=== PATIENT | female | born 1985 | race African-American/Black ===

== ENCOUNTER 2016-09-30 10:29 | Outpatient (CLI) | payer BC ==
[2016-09-30 17:52] LABS: Anion Gap 13 mmol/L (10-20); Globulin 2.7 g/dL (2.4-3.5); Iron Binding Capacity, Total 320 mcg/dL (265-497)
[2016-09-30 19:44] LABS: #Eosinphils 0.1 thou/uL (0.0-0.7); #Monocytes 0.4 thou/uL (0.11-0.59); #Neutrophils 3.7 thou/uL (1.40-6.50); %Basophils 0.7 % (0.0-1.0); %Eosinophils 1.3 % (0.0-10.0); %Lymphocytes 32.5 % (21.0-51.0); %Monocytes 6.9 % (0.0-10.0); %Neutrophils 58.7 % (42.0-75.0); ALT (SGPT) 16 U/L (8-55); AST (SGOT) 14 U/L (5-34); Albumin 4.3 g/dL (3.5-5.0); Alkaline Phosphatase 39 U/L (40-150); BUN (Urea Nitrogen) 11 mg/dL (7.0-18.7); Bilirubin, Total 0.4 mg/dL (0.2-1.2); Calc. Creatinine Clearance 0 mL/min (70-130); Calcium 9.1 mg/dL (7.8-10.44); Carbon Dioxide 20 mmol/L (22-29); Chloride 108 mmol/L (98-107); Estimated GFR-MDRD Greater than 90; Glucose 93 mg/dL (70-105); Hemoglobin 13.5 g/dL (12.0-16.0); Mean Corpuscular HGB CONC 32.3 g/dL (32.0-36.0); Mean Corpuscular Hemoglobin 28.8 pg (27.0-31.0); Mean Corpuscular Volume 89.2 fl (81.0-99.0); Mean Platelet Volume 7.7 fL (7.4-10.4); Platelet Count 268 thou/uL (130-400); Potassium 3.9 mmol/L (3.5-5.1); RBC Distribution Width 12.4 % (11.5-14.5); Sodium 138 mmol/L (136-145); White Blood Cell (WBC) Count 6.3 thou/uL (4.8-10.8)
[2016-09-30 21:48] LABS: Iron 78 ug/dL (50-170)
== END 2016-09-30 10:30 | disposition home or self-care (01) ==
LOC: NAV LABSP 10:29
PROVIDERS: ATTEND Internal Medicine
DX: K29.70 Gastritis, unspecified, without bleeding (principal)
CPT/HCPCS: 36415; 80053; 82728; 83540; 83550; 85025

== ENCOUNTER 2017-03-21 21:33 | Emergency (ER) | payer BC | END 2017-03-21 22:02 | disposition home or self-care (01) | LOC: NAV ERS 21:33 | DX: M25.461 Effusion, right knee (principal); M25.561 Pain in right knee; F32.9 Major depressive disorder, single episode, unspecified; F17.210 Nicotine dependence, cigarettes, uncomplicated; Z87.442 Personal history of urinary calculi; Z79.899 Other long term (current) drug therapy | CPT/HCPCS: 99283 ==

== ENCOUNTER 2017-06-27 07:40 | Emergency (ER) | payer BC ==
[2017-06-27] MEDS ORDERED: methylPREDNISolone Acetate 40 mg/ml Vial ONE (08:15)
== END 2017-06-27 08:29 | disposition home or self-care (01) ==
LOC: NAV ERS 07:40
DX: J01.90 Acute sinusitis, unspecified (principal); F32.9 Major depressive disorder, single episode, unspecified; F17.210 Nicotine dependence, cigarettes, uncomplicated
CPT/HCPCS: 96372; J1030

== ENCOUNTER 2019-11-25 22:35 | Emergency (ER) | payer BC, OTHER ==
[2019-11-27 12:15] LABS: SARS-CoV-2 MS2 Positive; SARS-CoV-2 N Gene Negative; SARS-CoV-2 S Gene Negative; SARS-CoV-2 by NAA Not Detected (NotDetected); SARS-CoV-2 orf1ab Negative
== END 2019-11-25 23:15 | disposition home or self-care (01) ==
LOC: NAV ERS 22:35
DX: R53.81 Other malaise (principal); Z20.828 Contact with and (suspected) exposure to other viral communicable diseases; K21.9 Gastro-esophageal reflux disease without esophagitis; F32.9 Major depressive disorder, single episode, unspecified; Z87.891 Personal history of nicotine dependence
CPT/HCPCS: 87635; 99283; U0003

== ENCOUNTER 2020-02-20 15:38 | Emergency (ER) | payer BC | END 2020-02-20 16:28 | disposition home or self-care (01) | LOC: NAV ERS 15:38 | DX: H92.11 Otorrhea, right ear (principal); K21.9 Gastro-esophageal reflux disease without esophagitis; F41.9 Anxiety disorder, unspecified; F17.210 Nicotine dependence, cigarettes, uncomplicated; F32.9 Major depressive disorder, single episode, unspecified; Z87.442 Personal history of urinary calculi; Z79.899 Other long term (current) drug therapy | CPT/HCPCS: 99282 ==

== ENCOUNTER 2020-02-23 18:32 | Emergency (ER) | payer BC ==
[2020-02-23] MEDS ORDERED: Ketorolac Tromethamine 60 MG/2 ML VIAL ONE (19:01)
== END 2020-02-23 19:25 | disposition home or self-care (01) ==
LOC: NAV ERS 18:32
DX: M54.6 Pain in thoracic spine (principal); M25.511 Pain in right shoulder; M25.512 Pain in left shoulder; K21.9 Gastro-esophageal reflux disease without esophagitis; F41.9 Anxiety disorder, unspecified; F32.9 Major depressive disorder, single episode, unspecified; F17.210 Nicotine dependence, cigarettes, uncomplicated; Z79.899 Other long term (current) drug therapy; Z87.442 Personal history of urinary calculi
CPT/HCPCS: 96372; 99283; J1885

== ENCOUNTER 2024-03-28 13:00 | Emergency (ER) | payer BC, SELFPAY ==
[2024-03-28] MEDS ORDERED: Acetaminophen 500 MG TAB ONE (13:25)
[2024-03-28] MEDS ORDERED: Aspirin Chewable 81 MG TAB ONE (13:25)
[2024-03-28 14:10] LABS: Bilirubin Negative (Negative); Blood, Urine Trace (Negative); Clarity Clear (Clear); Glucose, Urine (Dipstick) Negative (Negative); Ketone, Urine Negative (Negative); Leukocyte Negative (Negative); Nitrite Negative (Negative); Protein, Urine (Dipstick) Negative (Neg-Trace); Urobilinogen 0.2 mg/dL (Less than 2); pH, Urine 6.5 (5.0-9.0)
[2024-03-28 14:12] LABS: Pregnancy Test - Urine (BHCG) Negative (Negative)
[2024-03-28 14:13] LABS: Pregu Control Background? CLEAR/WHITE (CLR/WHITE); Pregu Control Bar Appear? YES (CONTROL BAR)
[2024-03-28 14:16] LABS: CAUTI Indications for Culture Alt mental st,lethar; RBC/HPF None Seen HPF (0-3); Squamous Epithelial 0-3 HPF (0-3); WBC/HPF None Seen HPF (0-3)
[2024-03-28 14:17] LABS: Urine Culture Reflex No No
== END 2024-03-28 15:07 | disposition home or self-care (01) ==
LOC: NAV ERS 13:00
DX: R07.89 Other chest pain (principal); F17.210 Nicotine dependence, cigarettes, uncomplicated
CPT/HCPCS: 71046; 81001; 81025; 93005

== ENCOUNTER 2024-06-09 07:19 | Emergency (ER) | payer BC | END 2024-06-09 08:20 | disposition home or self-care (01) | LOC: NAV ERS 07:19 | DX: H69.92 Unspecified Eustachian tube disorder, left ear (principal); R42 Dizziness and giddiness; F17.210 Nicotine dependence, cigarettes, uncomplicated | CPT/HCPCS: 99282 ==

== ENCOUNTER 2025-03-08 18:33 | Emergency (ER) | payer BC | END 2025-03-08 21:00 | disposition home or self-care (01) | LOC: NAV ERS 18:33 | DX: K52.9 Noninfective gastroenteritis and colitis, unspecified (principal); K21.9 Gastro-esophageal reflux disease without esophagitis; Z79.899 Other long term (current) drug therapy | CPT/HCPCS: 99283; Q0162 ==